=== PATIENT | female | born 1995 ===

== ENCOUNTER 2022-10-22 04:32 | Day surgery (SDC) | payer OTHER | END 2022-10-22 13:15 | disposition home or self-care (01) | LOC: CIR.AMB 04:32 | PROVIDERS: ATTEND Specialist | DX: K80.10 Calculus of gallbladder with chronic cholecystitis without obstruction (principal); Z20.822 Contact with and (suspected) exposure to COVID-19; Z86.16 Personal history of COVID-19 ==